=== PATIENT | female | born 1970 | race American Indian/Alaskan Native ===

== ENCOUNTER 2018-06-26 02:39 | Emergency (ER) | payer OTHER ==
[2018-06-26] MEDS ORDERED: NORCO 5/325 PO ONE (03:08)
[2018-06-26] MEDS ORDERED: IBUPROFEN PO ONE (03:09)
[2018-06-26 03:16] VITALS: BP 132/80
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
== END 2018-06-26 05:15 | disposition left against medical advice (07) ==
LOC: ED 02:39
DX: M54.5 Low back pain (principal); V89.2XXA Person injured in unspecified motor-vehicle accident, traffic, initial encounter; Y93.89 Activity, other specified; Y92.89 Other specified places as the place of occurrence of the external cause; Y99.8 Other external cause status
CPT/HCPCS: 70450; 71045; 72100; 72125; 74176